=== PATIENT | male | born 1980 | race Caucasian/White ===

== ENCOUNTER 2021-05-29 12:31 | Emergency (ER) | payer OTHER ==
[2021-05-29] MEDS ORDERED: CASIRIVIMAB (REGN10933) 600 MG, IMDEVIMAB (REGN10987) 600 MG in SODIUM CHLORIDE 100 ML IVPB ONE ×2 (12:36→13:15)
[2021-05-29 12:46] VITALS: BMI 41.5
[2021-05-29] MEDS ORDERED: ACETAMINOPHEN 325 MG TABLET (FP) PO ONE (13:57)
[2021-05-29 15:27] VITALS: BP 127/83; PULSE 88; TEMP 99.6
== END 2021-05-29 16:06 | disposition home or self-care (01) ==
LOC: JCOVINFU 12:31 → JER 12:31
DX: U07.1 COVID-19 (principal)
CPT/HCPCS: 99284-25; M0243; Q0243